=== PATIENT | female | born 1945 ===

== ENCOUNTER 2018-02-13 10:42 | Emergency (ER) | payer MEDICARE, OTHER ==
--- NOTE | 2018-02-13 11:30 | EDM.PDOC ---
ED HPI GENERAL MEDICAL PROBLEM - General Chief Complaint: Abdominal Pain Stated Complaint: ABDOMINAL PAIN Time Seen by Provider: 02/13/18 11:00 Source of Information: Reports: Patient History Limitations: Reports: No Limitations - History of Present Illness INITIAL COMMENTS - FREE TEXT/NARRATIVE: Patient is a 72-year-old female with a history of brain cancer currently on chemotherapy presents the ED complaining of ascites. Patient states over the past 2 weeks she has been developing more distention and discomfort to her abdomen. This has been a reoccurring issue for the past few months. States in total, she has under gown paracentesis x4 by Dr. Oneil. She has been followed by Dr. Villa and Dr. Ojeda with oncology. Patient has been receiving chemotherapy and is currently on treatment 3 of her second round. The first round she received 6 treatments in total. Unclear the staging at this point. She states March 2017 she had her right ovary removed. She has an appointment with one of her oncologist on March 09. She contacted Dr. Oneil's office to schedule paracentesis but was unable since he is out of town. She is short of breath with exertion secondary to the distention of her abdomen. There is no fever, nausea or vomiting, diarrhea, blood in her stool, dysuria, chest pain, or any additional complaints. She is on no blood thinner. She does not recall all her home medications. [facility] will be contacted. Abdominal Pain Score (Numeric/FACES): 5 - Related Data Allergies Allergy/AdvReac Type Severity Reaction Status Date / Time alcohol Allergy Swelling Verified 02/13/18 11:33 [From Mastisol Liquid Adhesive] gum mastic Allergy Swelling Verified 02/13/18 11:33 [From Mastisol Liquid Adhesive] methyl salicylate Allergy Swelling Verified 02/13/18 11:33 [From Mastisol Liquid Adhesive] storax Allergy Swelling Verified 02/13/18 11:33 [From Mastisol Liquid Adhesive] Home Meds: Home Meds Codeine/Promethazine [Phenergan with Codeine] 7 ml PO QPM #1 ml 04/12/14 [Rx] Levofloxacin [Levaquin] 1 tab DAILY 04/12/14 [History] Past Medical History - Past Health History Medical/Surgical History: Denies Medical/Surgical History HEENT History: Reports: Impaired Vision, Other (See Below) Other HEENT History: wears glasses [employer] 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 ED EXAM, GI/ABD - Physical Exam Exam: See Below Exam Limited By: No Limitations General Appearance: Alert, WD/WN, No Apparent Distress Ears: Hearing Grossly Normal Nose: Normal Inspection Throat/Mouth: Normal Inspection, Normal Oropharynx, Normal Voice, No Airway Compromise Neck: Normal Inspection, Supple Respiratory/Chest: No Respiratory Distress, Lungs Clear, Normal Breath Sounds, No Accessory Muscle Use, Chest Non-Tender Cardiovascular: Normal Peripheral Pulses, Regular Rate, Rhythm, No Murmur GI/Abdominal Exam: Normal Bowel Sounds, Distended, Rigid, Tender (minimal, tight per patient. ), Other (+fluid wave). No: Guarding, Rebound Back Exam: Normal Inspection Extremities: Normal Inspection Neurological: Alert, Oriented, CN II-XII Intact, Normal Cognition, No Motor/ Sensory Deficits Psychiatric: Normal Affect, Normal Mood Skin Exam: Warm, Dry, Intact, Normal Color Course - Vital Signs Last Recorded V/S: Last Vital Signs Temp 97.0 F 02/13/18 10:47 Pulse 80 02/13/18 13:53 Resp 20 02/13/18 10:47 BP 109/61 02/13/18 13:53 Pulse Ox 95 02/13/18 13:53 - Re-Assessments/Exams Free Text/Narrative Re-Assessment/Exam: [address] Iniguez consultant intern General Surgeon. He will see the patient to discuss paracentesis. 1120 Dr. Iniguez has spoken with the patient and agrees to perform paracentesis. Does not want any labs obtained. 02/13/18 11:52 Dr. Iniguez has been able to take off 2 liters of fluid with no complications. Suggested if able placement of a peritoneal dialysis catheter for therapeutic drainage of abdominal fluid. 1222 I have spoken with Dr. Villa. Suggested holding off in placing permanent peritoneal dialysis cath. States he was hopeful with completion of 2nd round of chemo this will resolve. If not they will have IR place the catheter. Patient tolerated procedure well. VSS. She is ready to go home. The patient remained hemodynamically stable while under my care in the E.D. I discussed the concerning symptoms for which to returnto the E.D. with the patient/family. The patient/family verbalized understanding. All questions were answered. Departure - Departure Time of Disposition: 12:29 Disposition: Home, Self-Care 01 Condition: Good Clinical Impression: Ascites, malignant - Discharge Information Instructions: Paracentesis, Care After Referrals: Genie Mann NP [Primary Care Provider] - Forms: ED Department Discharge Additional Instructions: Please followup with PCP or oncology this coming week for reevaluation. Return to the E.D. if you develop any new or worsening symptoms. Continue taking all home medications as prescribed.
--- NOTE | 2018-02-13 19:20 | PROC ---
DATE OF OPERATION: 02/13/2018 SURGEON: Anders Iniguez MD NAME OF THE PROCEDURE: Abdominal paracentesis. 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 She has had 3 prior episodes of ascites drainage; the last one was 2 weeks ago. RECOMMENDATION: I would proceed with paracentesis today; however, this patient needs multiple paracentesis, and since it is a malignant effusion, I would consider doing a permanent peritoneal dialysis catheter placed in the operating room under direct vision, and then this patient could have simply the cap removed by a home healthcare nurse or a clinic. I need to get notification soon enough to be able to get a catheter from a larger medical center to place this here in [place], but it could be done. PROCEDURE: After adequate preparation, an area on the right side of the abdomen was infiltrated with 1% Xylocaine. A small stab incision was made and a peritoneal dialysis catheter was placed intraperitoneally. I was able to easily withdraw 2 L of fluid. This made a significant difference in her abdominal tension. In manipulating the catheter, I was not able to get it in a different position, and with multiple maneuvers, the patient still kind of quit draining although she still has a moderate amount of ascites left. Symptomatically, however, she was better. I decided to end the procedure with relieving 2 L of fluid. A Band-Aid was applied to the skin. The patient was discharged. MMODAL /[id number]
== END 2018-02-13 12:15 | disposition home or self-care (01) ==
LOC: JD.ED 10:42
DX: C56.1 Malignant neoplasm of right ovary (principal); R18.0 Malignant ascites; C71.9 Malignant neoplasm of brain, unspecified; Z88.8 Allergy status to other drugs, medicaments and biological substances; Z79.899 Other long term (current) drug therapy
CPT/HCPCS: 49082; 99285; C1729; 99284